=== PATIENT | female | born 1990 | race African-American/Black ===

== ENCOUNTER 2019-03-31 21:09 | Emergency (ER) | payer OTHER, SELFPAY ==
[2019-03-31 21:13] VITALS: BP 115/74; PULSE 94; RESP 16; TEMP 36.7; O2SAT 98; BMI 27.1
--- NOTE | 2019-03-31 21:40 | ED.VISSUMM ---
- ER Visit Summary Date of Service: 03/31/19 Chief Complaint: Right lower back pain. Worker's Comp. injury. History of Present Illness: The patient is a 28 F no sniffing past medical history other than a mitral valve repair. Patient works at the [employer]. 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 She did not fall there was no other trauma. She has no back history of prior back surgery. She denies any weakness or numbness to her arms or legs. Physical Examination: Young female no acute distress. Vital signs are stable and afebrile. HEENT exam unremarkable. Neck nontender full range of motion. Lungs clear to auscultation bilaterally. Heart regular rhythm no murmur. Chest wall nontender. Abdomen soft nontender. Patient moving all 4 extremities. Neurovascular intact. She has normal 5 out of 5 motor strength both upper and lower extremities. Normal process engineering intern strength. Normal dorsi plantar flexion. No cauda equina. No saddle anesthesia. Normal medial thigh sensation. Negative straight leg raise bilaterally. Back exam the neck, thoracic lumbar spine are all nontender she has mild right paravertebral soft tissue tenderness consistent with muscle strain. Neurologically she is awake and alert with no focal motor or sensory deficits. Test Results: None Emergency Department Course and Treatment: Patient already took something for pain. She is instructed this is a muscle strain. Ice. Heat. Motrin. Treatment Plan: Ice. Heat. Motrin. Follow-up if not improving. Disposition: Discharge Impression: Right lower back strain Worker's Comp. injury This note was generated with [employer] dictation software. It may contain incorrect words, spelling, and punctuation that were not noted in review of the chart prior to signing ED Disposition - Plan for ED Patient: Referrals: Gio Olivera [Primary Care Provider] -
--- NOTE | 2019-03-31 21:43 | ED.DCSUM_ITS ---
- ER Visit Summary Date of Service: 03/31/19 Chief Complaint: Right lower back pain. Worker's Comp. injury. History of Present Illness: The patient is a 28 F no sniffing past medical history other than a mitral valve repair. Patient works at the [employer]. 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 She did not fall there was no other trauma. She has no back history of prior back surgery. She denies any weakness or numbness to her arms or legs. Physical Examination: Young female no acute distress. Vital signs are stable and afebrile. HEENT exam unremarkable. Neck nontender full range of motion. Lungs clear to auscultation bilaterally. Heart regular rhythm no murmur. Chest wall nontender. Abdomen soft nontender. Patient moving all 4 extremities. Neurovascular intact. She has normal 5 out of 5 motor strength both upper and lower extremities. Normal registered clinical dietitian strength. Normal dorsi plantar flexion. No cauda equina. No saddle anesthesia. Normal medial thigh sensation. Negative straight leg raise bilaterally. Back exam the neck, thoracic lumbar spine are all nontender she has mild right paravertebral soft tissue tenderness consistent with muscle strain. Neurologically she is awake and alert with no focal motor or sensory deficits. Test Results: None Emergency Department Course and Treatment: Patient already took something for pa in. She is instructed this is a muscle strain. Ice. Heat. Motrin. Treatment Plan: Ice. Heat. Motrin. Follow-up if not improving. Disposition: Discharge Impression: Right lower back strain Worker's Comp. injury This note was generated with [employer] dictation software. It may contain incorrect words, spelling, and punctuation that were not noted in review of the chart prior to signing ED Disposition - Plan for ED Patient: Referrals: Gio Oilvera [Primary Care Provider] -
--- NOTE | 2019-03-31 21:43 | ED.DEP ---
ED Disposition - Plan for ED Patient: Disposition: Home or Assisted Living Instructions: ED Sprain Strain Lumbar Referrals: Gio Olivera [Primary Care Provider] - As Needed [facility] [GROUP OF PHYSICIANS] - As Needed Additional Instructions: Hot shower warm bath to relax the muscles. Ice to decrease inflammation. Motrin for pain and inflammation. Should progressively get better. No heavy lifting greater than 10 pounds for 1 week.
== END 2019-03-31 21:52 | disposition home or self-care (01) ==
PROVIDERS: Emergency Provider Emergency Medicine
DX: S39.012A Strain of muscle, fascia and tendon of lower back, initial encounter (principal); X58.XXXA Exposure to other specified factors, initial encounter; Y93.9 Activity, unspecified; Y92.9 Unspecified place or not applicable; Z95.2 Presence of prosthetic heart valve
CPT/HCPCS: 99282

== ENCOUNTER 2019-11-20 15:14 | Emergency (ER) | payer OTHER, SELFPAY ==
[2019-11-20 15:15] VITALS: BP 135/95; PULSE 80; RESP 13; TEMP 36.7; O2SAT 99; BMI 33.2
--- NOTE | 2019-11-20 15:20 | EKG12_ITS ---
Test Reason : CP Blood Pressure : / mmHG Vent. Rate : 075 BPM Atrial Rate : 075 BPM P-R Int : 162 ms QRS Dur : 086 ms QT Int : 396 ms P-R-T Axes : 002 077 057 degrees QTc Int : 442 ms Normal sinus rhythm Possible Left atrial enlargement Borderline ECG Confirmed by JHONATHAN ERNST, QAMAR ([id number]), restaurant expeditor CHRISTOPHER MEDELLIN ([id number]) on 11/22/2019 8:59:27 AM Referred By: DIANDRA Confirmed By:QAMAR RING MD
--- NOTE | 2019-11-20 15:20 | RAD_ITS ---
STUDY: X-RAY CHEST REASON FOR EXAM: Female, 29 years old. COUGH, CHEST PAIN, MITRAL VALVE REPLACEMENT 2010 TECHNIQUE: Single AP portable view of the chest. COMPARISON: None. FINDINGS: EKG electrodes are seen. The lungs are clear and expanded. There is no demonstrated pleural abnormality. Sternal cerclage wires are present from a prior sternotomy. Prior mitral valve replacement. Normal mediastinum and génesis. Normal visualized pulmonary arteries. Normal visualized aortic arch and descending thoracic aorta. Normal visualized thoracic spine. Normal visualized ribs, clavicles, and shoulders. There is no demonstrated abnormality of the visualized soft tissue structures of the upper abdomen. RAD/Chest 1 View (Portable) IMPRESSION: Normal x-ray examination of the chest. Electronically Signed: Iglesia Reed, at 15:36 EST , Service support ,
--- NOTE | 2019-11-20 15:20 | CT_ITS ---
STUDY: CT BRAIN WITHOUT CONTRAST REASON FOR EXAM: Female, 29 years old. MIGRAINE, H/O BRAIN TUMOR. RADIATION DOSAGE (If Supplied By Facility): CTDIvol = ( 44.99 ) mGy, DLP = ( 728.62 ) mGycm TECHNIQUE: Transaxial CT imaging of the brain was performed without administration of intravenous contrast material. Individualized dose optimization techniques were used for this CT. COMPARISON: No relevant priors. FINDINGS: Normal soft tissue structures. Normal calvarium. Normal size ventricles and extra-axial spaces for the patient''s age. Normal white matter tracts of the cerebral hemispheres. Normal basal ganglia and thalami. Normal brainstem. Normal cerebellum. There is no intracranial hemorrhage. There are no findings of an acute ischemic infarction. Normal visualized paranasal sinuses. CT/Brain/Head without Contrast IMPRESSION: Normal unenhanced CT scan of the brain. Electronically Signed: Juan Muhammad MD at 16:59 EST , Service support ,
--- NOTE | 2019-11-20 15:23 | ED.DCSUM_ITS ---
- ER Visit Summary Date of Service: 11/20/19 Chief Complaint: Headache, chest pain History of Present Illness: The patient is a 29 F presenting with headache, chest pain. Patient states that she started to feel dizzy and lightheaded. She began to have a gradual onset headache. This was similar to her previous migraine headaches. She went in a dark room to sit down. She states this typically helps. She then began having midsternal chest squeezing. She had associated heavy breathing. She states the chest pain is now improved. She continues to have headache. She denies fever or chills. Denies nausea or vomiting. Denies other complaints. She has history of remote mitral valve repair. She has history of a benign brain tumor. Physical Examination: Vitals are stable. Patient is afebrile. Alert no acute distress. HEENT exam is unremarkable. Neck is supple. No meningismus Lungs are clear and equal bilaterally. Heart is regular rate and rhythm. Abdomen is soft nontender nondistended. Extremities are unremarkable. Skin is warm and dry. No focal neurologic deficit. Remainder of exam is unremarkable. Emergency Department Course and Treatment: Patient was given IV fluids, Reglan, Benadryl. EKG is sinus rate of 75 with no acute ischemic changes. Chest x-ray shows no acute process. CBC, chemistries unremarkable. Troponin is negative. D-dimer negative. hCG negative. Orthostatics negative. CT head shows Normal unenhanced CT scan of the brain. On reevaluation, patient is feeling improved. She is advised to follow-up with her primary care physician. Advised to return to the ED for worsening complaints. Disposition: Discharge home Impression: Headache, chest pain This note was generated with [employer] dictation software. It may contain incorrect words, spelling, and punctuation that were not noted in review of the chart prior to signing ED Disposition - Plan for ED Patient: Referrals: Gio Olivera [Primary Care Provider] -
[2019-11-20] MEDS: DiphenhydrAMINE 50 MG/ML Syringe 25 MG IV (15:40)
[2019-11-20] MEDS: 0.9% Normal Saline 1,000 ML 1000 ML IV (15:41)
[2019-11-20] MEDS: Metoclopramide 10 MG/2 ML Vial IV (15:41)
[2019-11-20 15:45] LABS: Absolute Lymphocyte Count 2.93 X10^3/uL (0.83-4.51); Basophil# 0.07 X10^3/uL; Basophil% 0.9 % (0-1); Eosinophil# 0.06 X10^3/uL; Eosinophils% 0.7 % (0-5); Hematocrit 40.5 % (37-47); Hemoglobin 12.6 g/dL (12.0-15.0); Lymphocyte # 2.93 X10^3/ul (4.0); Lymphocyte % 36.3 % (19-41); Mean Corp Hgb Conc 31.1 g/dL (32-36); Mean Corpuscular Hgb 26.8 pg (27.0-32.0); Mean Corpuscular Volume 86.2 fL (81-99); Mean Platelet Vol. 9.8 fl (6.2-12.0); Monocyte% 12.4 % (0-10); NRBC Flagged by Analyzer 0 % (0-5); Neutrophil % 49.6 % (47-70); Platelet Count 319 K/mm3 (150-450); RBC Distribution Width SD 40.7 fl (35.1-43.9); White Blood Count 8.1 K/mm3 (4.4-11.0)
[2019-11-20 15:57] LABS: D-Dimer Quantitative (DVT/PE) 0.48 FEU/ug/m (0.27-0.49)
[2019-11-20 16:25] VITALS: BP 125/82; PULSE 78; RESP 16; O2SAT 98
[2019-11-20 16:28] LABS: Internal QC Validated? YES +Cl - CLEAR BKGD; Pregnancy, Serum, hCG Quali. NEGATIVE Negative
[2019-11-20 16:33] LABS: Anion Gap 4 (5-15); BUN 19 mg/dL (7-18); BUN/Creat Ratio 17.1 RATIO (10-20); Calcium,Total 8.8 mg/dL (8.5-10.1); Chloride 109 mmol/L (98-107); Creatinine, Serum 1.11 mg/dL (0.55-1.02); EST Glomerular Filtration Rate 62 mL/min (>60); Est Glom Filt Rate - Afr Amer 75 mL/min (>60); Estimated Creatinine Clearance 62.42 ml/min; Glucose 92 mg/dL (74-106); Potassium 4.2 mmol/L (3.5-5.1); Sodium Level 139 mmol/L (136-145)
[2019-11-20 16:46] VITALS: BP 104/72; BP 106/70; BP 106/77; PULSE 75; PULSE 76
[2019-11-20 17:07] VITALS: PULSE 78; RESP 18; O2SAT 98
--- NOTE | 2019-11-20 17:32 | ED.DEP ---
ED Disposition - Plan for ED Patient: Instructions: CHEST PAIN, Uncertain Cause, HEADACHE, Unspecified Referrals: Gio Olivera [Primary Care Provider] -
[2019-11-20 17:44] VITALS: BP 99/65; PULSE 84; RESP 17; O2SAT 98
--- NOTE | 2019-11-20 17:45 | ED.RN ---
PT GIVEN WRITTEN AND VERBAL DISCHARGE INSTRUCTIONS AND HOME GOING PAPERWORK. PT VERBALIZES UNDERSTANDING AND DENIES ANY FURTHER QUESTIONS. IV D/C AND COVERED WITH 2X2 GAUZE AND PAPER TAPE. PT DRESSES SELF AND AMBULATES TO LOBBY WITHOUT ASSISTANCE.
== END 2019-11-20 17:46 | disposition home or self-care (01) ==
LOC: ED 15:52
PROVIDERS: Emergency Provider Emergency Medicine
DX: R51 Headache (principal); R07.89 Other chest pain; R42 Dizziness and giddiness; Z86.011 Personal history of benign neoplasm of the brain; Z95.2 Presence of prosthetic heart valve
CPT/HCPCS: 70450; 71045; 80048; 84484; 84703; 85025; 85379; 93005; 96361; 96374; 96375; 99285; J7030; A4216